=== PATIENT | male | born 1995 | race Caucasian/White ===

== ENCOUNTER 2019-06-08 07:57 | Day surgery (SDC) | payer BC ==
[2019-06-02 11:51] VITALS: BMI 19.0
[2019-06-08] MEDS ORDERED: PROPOFOL 20 ML ONE ×2 (08:03)
[2019-06-08] MEDS ORDERED: LIDOCAINE HCL/PF 2% SDV 5ML VIAL ONE (08:55)
[2019-06-08 09:50] VITALS: TEMP 97.6
[2019-06-08 09:52] VITALS: BP 109/67; PULSE 60
--- NOTE | 2019-06-15 10:54 | PATH ---
Surgical Pathology Report Patient Name: MONIQUE ZAMORA [facility]. Rec. #: [id number] /Age/Gender: 1995 (Age: 23) / M Account: [id number] Location: [facility] Taken: 06/08/2019 Received: 06/08/2019 Reported: 06/15/2019 Physicians: Duane Mancera M.D. Specimen(s) Received A: SECOND PORTION DUODENUM B: ANTRUM Clinical History Gastritis Postoperative diagnosis: Gastritis Final Diagnosis A. DUODENUM, SECOND PORTION, BIOPSY: DUODENAL MUCOSA WITHOUT SIGNIFICANT PATHOLOGIC FINDINGS. B. GASTRIC ANTRUM, BIOPSY: GASTRIC ANTRAL MUCOSA WITH MILD CHRONIC GASTRITIS. IMMUNOHISTOCHEMICAL STAIN FOR H. PYLORI IS NEGATIVE. Electronically Signed Beatris Dc M.D. Gross Description A. Received in formalin, labeled "second portion duodenum" are 3 daniels, irregular portions of soft tissue ranging in size from 0.2-0.4 cm. in greatest dimension. The specimens are submitted in toto in one cassette. B. Received in formalin, labeled "gastric antrum" are 2 daniels, irregular portions of soft tissue measuring 0.2 and 0.5 cm. in greatest dimension. The specimens are submitted in toto in one cassette. MLSZ/06/09/2019 [place]/06/09/2019
== END 2019-06-08 09:30 | disposition home or self-care (01) ==
LOC: FASU-ENDO 07:57
PROVIDERS: ATTEND Internal Medicine Gastroenterology
PROC: 0DB68ZX Excision of Stomach, Via Natural or Artificial Opening Endoscopic, Diagnostic (ICD-10-PCS; 2019-06-08)
PROC: 0DB98ZX Excision of Duodenum, Via Natural or Artificial Opening Endoscopic, Diagnostic (ICD-10-PCS; principal; 2019-06-08 08:55)
DX: K29.50 Unspecified chronic gastritis without bleeding (principal); R10.13 Epigastric pain; R11.0 Nausea
CPT/HCPCS: 88305-TC; 88342-TC